=== PATIENT | female | born 1980 | race Caucasian/White ===

== ENCOUNTER 2021-08-17 06:28 | Day surgery (SDC) | payer OTHER, SELFPAY ==
[~2021-08-17] VITALS: Ht 154.9 cm; Wt 83.9 kg
[2021-08-17] MEDS ORDERED: fentaNYL citrate 0.05 MG/ML VIAL ONE (08:11)
[2021-08-17] MEDS ORDERED: MIDAZOLAM 5 MG/5 ML VIAL ONE (08:12)
[2021-08-17] MEDS ORDERED: MIDAZOLAM 2 MG/2 ML VIAL IVP ONE (08:40)
== END 2021-08-17 09:20 | disposition home or self-care (01) ==
LOC: MDS 06:28 → MMU 06:29 → MDS 09:20
PROVIDERS: ATTEND Internal Medicine Gastroenterology
DX: R10.13 Epigastric pain (principal); K21.9 Gastro-esophageal reflux disease without esophagitis; K44.9 Diaphragmatic hernia without obstruction or gangrene; J45.909 Unspecified asthma, uncomplicated; Z90.49 Acquired absence of other specified parts of digestive tract; Z98.84 Bariatric surgery status; Z79.899 Other long term (current) drug therapy
CPT/HCPCS: 36415; 43239; 81025; 86677; 87426; J2250; J3010